=== PATIENT | male | born 2000 | race Caucasian/White ===

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

== ENCOUNTER 2021-01-26 13:10 | Emergency (ER) | payer OTHER ==
[~2021-01-26 13:10] MED LIST: TESSALON PERLE100 MG PO; ZITHROMAX250 MG PO
[2021-01-26] MEDS ORDERED: NORFLEX 100 MG100 MG PO (16:53)
[2021-01-26] MEDS ORDERED: IBUPROFEN600 MG PO (16:53)
== END 2021-01-26 16:58 | disposition home or self-care (01) ==
LOC: ER1 13:10
DX: M79.662 Pain in left lower leg (principal)
CPT/HCPCS: 93971; 99283